=== PATIENT | female | born 1995 | race Caucasian/White ===

== ENCOUNTER 2023-04-24 13:12 | Emergency (ER) | payer OTHER, SELFPAY ==
[2023-04-24 13:32] VITALS: BP 116/77; PULSE 102; RESP 16; TEMP 36.6; O2SAT 99
--- NOTE | 2023-04-24 14:30 | ED.DENTAL ---
HPI - Dental/Oral General Chief complaint: Dental/Oral Stated complaint: jaw swelling Time Seen by Provider: 04/24/23 13:47 Source: patient Mode of arrival: ambulatory Limitations: no limitations History of Present Illness HPI Narrative: Patient is a 28-year-old female who presents to the ED with report of left lower dental pain. Patient reports having pain along her left lower teeth since 2 nights ago after eating dinner. She began noticing some swelling to her left lower jaw last night. Hx of dental issues, reports she needs her teeth pulled. Denies difficulty breathing or swallowing. Denies fevers. Denies drainage from the tooth. Patient has not contacted her dentist. Related Data Allergies Allergy/AdvReac Type Severity Reaction Status Date / Time Sulfa (Sulfonamide Allergy Hives Verified 04/24/23 14:42 Antibiotics) Review of Systems Review of Systems: CONSTITUTIONAL: Denies fever, chills, or sweats. ENT: See HPI. CARDIOVASCULAR: Denies chest pain. RESPIRATORY: Denies dyspnea. GASTROINTESTINAL: Denies abdominal pain, nausea, vomiting. All systems reviewed & are unremarkable except as noted in HPI and below Exam Narrative: GENERAL: Well appearing, well-nourished, non-toxic, in no acute distress. HEAD: Normocephalic, atraumatic. ENT: Diffuse dental decay and dental caries. Teeth eroded down to gumline. Tenderness along left lower gumline, particularly teeth numbers 20 & 19. Gumline appears inflamed and mildly erythematous. No focal abscess or fluctuance appreciated. Mild amount of swelling noted to left outer lower jaw, again no palpable fluctuance or induration. No trismus. No stridor. RESPIRATORY: Airway patent, respirations nonlabored. CARDIOVASCULAR: Regular rate and rhythm. MUSCULOSKELETAL: Moves all extremities. No gross deformities. SKIN: Warm, dry, normal color. NEURO: A&O X3. Speech clear. Cranial nerves II-XII grossly intact. No ataxic movements. PSYCHIATRIC: Appropriate mood and affect. Normal interaction. Course Vital Signs Vital signs: Vital Signs Temperature 97.9 F 04/24/23 13:32 Pulse Rate 102 H 04/24/23 13:32 Respiratory Rate 16 04/24/23 13:32 Blood Pressure 116/77 04/24/23 13:32 Pulse Oximetry 99 04/24/23 13:32 Oxygen Delivery Room Air 04/24/23 13:32 Temperature 97.9 F 04/24/23 13:32 Pulse Rate 102 H 04/24/23 13:32 Respiratory Rate 16 04/24/23 13:32 Blood Pressure 116/77 04/24/23 13:32 Pulse Oximetry 99 04/24/23 13:32 Oxygen Delivery Room Air 04/24/23 13:32 MDM - Dental/Oral MDM Narrative Medical decision making narrative: Patient's pain is consistent with dental caries. There is some swelling noted to left lower jaw, but there are no focal signs of space-occupying abscess. The patient is controlling secretions well without signs of airway compromise. Patient is felt reasonable for outpatient follow-up with dental evaluation. Will start patient on Augmentin for dental infection. Advised to continue Tylenol and ibuprofen as needed for pain. Advised to follow-up with dentist as soon as possible for further evaluation. Given return precautions. Patient agrees with plan. Discharged in stable condition. Patient given list of dentists. Medical Records Attestation: I reviewed the patient's medical records. Discharge Plan Discharge Clinical Impression: Dental caries, Toothache Patient Disposition: Home, Self-Care Condition: Stable Instructions: Antibiotic Form, Dental Abscess (ED), Toothache (ED) Additional Instructions: Take antibiotics as prescribed. Follow-up with dentist as soon as possible for further evaluation. Continue Tylenol and ibuprofen as needed for pain. Return to the ED if you experience worsening or severe pain, worsening or severe swelling, unable to open mouth, persistent fevers, vomiting, or any other symptoms of concern. Prescriptions: New amoxicillin-pot clavulanate 875-125 mg tablet
[2023-04-24] MEDS: AMOXICILLIN/CLAVULANATE K 875-125 MG TAB 1 TABLET PO (14:43)
== END 2023-04-24 14:45 | disposition home or self-care (01) ==
PROVIDERS: Emergency Provider Physician Assistant
DX: K02.9 Dental caries, unspecified (principal); K08.89 Other specified disorders of teeth and supporting structures
CPT/HCPCS: 99283; A9270

== ENCOUNTER 2024-04-05 22:42 | Emergency (ER) | payer OTHER, SELFPAY ==
[2024-04-05 22:51] VITALS: BP 107/83; PULSE 93; RESP 18; TEMP 36.8; O2SAT 97
--- NOTE | 2024-04-05 22:53 | ED.GENADULT ---
HPI - General Adult General Chief complaint: Skin/Abscess/Foreign Body Stated complaint: rash Time Seen by Provider: 04/05/24 22:49 History of Present Illness HPI narrative: patient is a 29-year-old female who presents emergency department with chief complaint of rash patient reports for last 2 weeks she has had an itchy rash over her body Related Data Allergies Allergy/AdvReac Type Severity Reaction Status Date / Time Sulfa (Sulfonamide Allergy Hives Verified 04/24/23 14:42 Antibiotics) Review of Systems Review of Systems: A 10 system review of systems was completed on the patient and is negative except for what is stated in the HPI. Nursing and ancillary documentation was reviewed. Exam Narrative: GENERAL: Well-appearing, well-nourished, and in no acute distress. HEAD: Normocephalic, atraumatic. EYES: PERRLA and EOMI. ENT: Nares clear, no rhinorrhea or epistaxis. Mucous membranes moist. NECK: Supple. CHEST: Clear to auscultation. No respiratory distress. HEART: Regular rate and rhythm. No murmur heard. Normal peripheral pulses. ABDOMEN: Soft, nontender, nondistended, normal active bowel sounds. EXTREMITIES: Normal range of motion. No edema. SKIN: Warm, dry, erythematous raised rash. NEURO: No focal deficits. Alert and oriented x3. PSYCH: Normal mood and affect. Course Vital Signs Vital signs: Vital Signs Temperature 36.8 C 04/05/24 22:51 Pulse Rate 93 04/05/24 22:51 Respiratory Rate 18 04/05/24 22:51 Blood Pressure 107/83 04/05/24 22:51 Pulse Oximetry 97 04/05/24 22:51 Temperature 36.8 C 04/05/24 22:51 Pulse Rate 93 04/05/24 22:51 Respiratory Rate 18 04/05/24 22:51 Blood Pressure 107/83 04/05/24 22:51 Pulse Oximetry 97 04/05/24 22:51 Medical Decision Making [facility] Narrative Medical decision making narrative: differential diagnosis includes contact dermatitis, allergic reaction, patient has no airway compromise has a generalized erythematous rash patient was started on oral steroids and will be discharged home to follow-up with primary care if she does have symptoms she will need to follow-up with dermatology Vital Signs Vital Signs: Vital Signs Temperature 36.8 C 04/05/24 22:51 Pulse Rate 93 04/05/24 22:51 Respiratory Rate 18 04/05/24 22:51 Blood Pressure 107/83 04/05/24 22:51 Pulse Oximetry 97 04/05/24 22:51 Temperature 36.8 C 04/05/24 22:51 Pulse Rate 93 04/05/24 22:51 Respiratory Rate 18 04/05/24 22:51 Blood Pressure 107/83 04/05/24 22:51 Pulse Oximetry 97 04/05/24 22:51 Discharge Plan Discharge Clinical Impression: Dermatitis Patient Disposition: Home, Self-Care Condition: Stable Instructions: Antibiotic Form, Dermatitis (ED) Prescriptions: New prednisone 20 mg tablet 40 mg PO DAILY 5 Days Qty: 10 0RF No Action amoxicillin-pot clavulanate 875-125 mg tablet 1 tablet PO Q12H 7 Days Qty: 14 0RF Follow-up/Referrals: PHYSICIAN,DETAIL DRAFTER [Primary Care Provider] - Anderson Pinto MD [Physician] - Time of Disposition: 23:03
[2024-04-05] MEDS: predniSONE 20 MG TABLET 60 MG PO (22:56)
== END 2024-04-05 23:37 | disposition home or self-care (01) ==
LOC: ANHED 23:11
PROVIDERS: Emergency Provider Emergency Medicine
DX: L30.9 Dermatitis, unspecified (principal)
CPT/HCPCS: 99283; J7512